=== PATIENT | male | born 1990 | race Caucasian/White ===

== ENCOUNTER 2020-06-14 19:53 | Emergency (ER) | payer BC, SELFPAY ==
--- NOTE | ~2020-06-14 | XR_ITS ---
EXAMINATION: XR ribs LT 2V w CXR 2V INDICATION: Left chest pain TECHNIQUE: PA and lateral views of the chest and 3 views of the left ribs were obtained. COMPARISON: None. FINDINGS: The lungs are free of acute opacities. There is no pleural effusion or pneumothorax. The ca rdiomediastinal silhouette is normal. The visualized osseous structures are unremarkable. No displace d rib fracture is identified. IMPRESSION: 1. No acute cardiopulmonary abnormality or evidence of displaced rib fracture. Reviewed, dictated and finalized at location A. [employer]
[2020-06-14 19:58] VITALS: BP 123/85; PULSE 104; RESP 15; TEMP 36.4; O2SAT 100
--- NOTE | 2020-06-14 20:03 | PC.NURSE ---
patient brought back to ED room 20 with c/o left rib pain after fall last Tuesday. see initial notes. no change in patient's condition. assessments documented. alert. oriented. waiting for further orders from provider.
--- NOTE | 2020-06-14 20:38 | PC.NURSE ---
xray resulted. provider in room now.
--- NOTE | 2020-06-14 20:41 | ED.GENADULT ---
HPI - General Adult General Chief complaint: Unspecified Stated complaint: i think i cracked some ribs Time Seen by Provider: 06/14/20 20:01 Source: patient Mode of arrival: ambulatory Limitations: no limitations History of Present Illness HPI narrative: This is a 30-year-old male that presents the emergency department for left-sided chest pain over the last week after an injury. Reports he had tripped and fell onto some 2 by 4s. Reports the pain is worse with palpation and movement. Relieved with rest. Denies fever, cough, or shortness of breath. Review of Systems Review of Systems: Narrative: CONSTITUTIONAL: Denies fever CARDIOVASCULAR: Denies chest/rib pain RESPIRATORY: Denies cough or dyspnea. All systems reviewed & are unremarkable except as noted in HPI and below PMFSH Past Medical History Medical History (Updated 06/14/20 @ 20:45 by Ca Howard PA-C) No active medical problems Social History Social History (Updated 06/14/20 @ 20:43 by Ca Howard PA-C) Smoking status: Current every day smoker Exam Narrative: Exam Narrative: GENERAL: Well-appearing, well-nourished, and in no acute distress. HEAD: Normocephalic, atraumatic. EYES: EOMI. CHEST: Clear to auscultation. No respiratory distress. No wheezes rales or rhonchi. Tender to palpation of the left, lower chest wall anteriorly HEART: Regular rate and rhythm. No murmur heard. Normal peripheral pulses. EXTREMITIES: Normal range of motion. No edema. SKIN: Warm, dry, no rash. NEURO: No focal deficits. Alert and oriented x3. PSYCH: Normal mood and affect Course Vital Signs Vital signs: Vital Signs Temperature 97.6 F 06/14/20 19:58 Pulse Rate 104 H 06/14/20 19:58 Respiratory Rate 15 06/14/20 19:58 Blood Pressure 123/85 06/14/20 19:58 Pulse Oximetry 100 06/14/20 19:58 Temperature 97.6 F 06/14/20 19:58 Pulse Rate 104 H 06/14/20 19:58 Respiratory Rate 15 06/14/20 19:58 Blood Pressure 123/85 06/14/20 19:58 Pulse Oximetry 100 06/14/20 19:58 Medical Decision Making [facility] Narrative Medical decision making narrative: Patient presents emergency department for left-sided rib pain after an injury 1 week ago. Rib/chest x-ray is without acute findings. Patient was instructed on care of rib contusion. He is to follow-up with primary care doctor. He was given warnings to return to the ER Vital Signs Vital Signs: Vital Signs Temperature 97.6 F 06/14/20 19:58 Pulse Rate 104 H 06/14/20 19:58 Respiratory Rate 15 06/14/20 19:58 Blood Pressure 123/85 06/14/20 19:58 Pulse Oximetry 100 06/14/20 19:58 Temperature 97.6 F 06/14/20 19:58 Pulse Rate 104 H 06/14/20 19:58 Respiratory Rate 15 06/14/20 19:58 Blood Pressure 123/85 06/14/20 19:58 Pulse Oximetry 100 06/14/20 19:58 Imaging Data Radiologist's impression: ITS Impressions Ribs w/Chest X-Ray 06/14/20 20:29 IMPRESSION: 1. No acute cardiopulmonary abnormality or evidence of displaced rib fracture. Critical Care Time Critical Care Time Critical Care Time: No Discharge Plan Discharge Clinical Impression: Contusion of rib on left side Qualifiers: Encounter type: initial encounter Qualified Code(s): S20.212A - Contusion of left front wall of thorax, initial encounter Patient Disposition: Home, Self-Care Condition: Stable Instructions: Rib Contusion (ED) Additional Instructions: Return to the emergency department if you experience fever, cough, shortness of breath, or any other symptoms that are concerning to you Rest. Ice to the area. Tylenol or ibuprofen as needed for pain Follow-up with primary care doctor Follow-up/Referrals: Bobby Baltazar MD [Physician] - 3 Days PHYSICIAN,PEDIATRIC DIETICIAN [Primary Care Provider] -
== END 2020-06-14 20:53 | disposition home or self-care (01) ==
PROVIDERS: Emergency Provider Emergency Medicine
DX: S20.212A Contusion of left front wall of thorax, initial encounter (principal); W19.XXXA Unspecified fall, initial encounter
CPT/HCPCS: 71046; 71100; 99283

== ENCOUNTER 2021-12-04 16:36 | Emergency (ER) | payer BC, SELFPAY ==
[2021-12-04 17:19] VITALS: BP 130/104; PULSE 94; RESP 14; TEMP 36.8; O2SAT 94
--- NOTE | 2021-12-04 17:44 | ED.DENTAL ---
HPI - Dental/Oral General Chief complaint: Dental/Oral <DMITRY Khalil Last Filed: 12/04/21 17:49> Stated complaint: TOOTH PAIN <DMITRY Khalil Last Filed: 12/04/21 17:49> Time Seen by Provider: 12/04/21 17:16 <DMITRY Khalil Last Filed: 12/04/21 17:49> Source: patient <DMITRY Khalil Last Filed: 12/04/21 17:49> Mode of arrival: ambulatory <DMITRY Khalil Last Filed: 12/04/21 17:49> Limitations: no limitations <DMITRY Khalil Last Filed: 12/04/21 17:49> History of Present Illness HPI Narrative: This is a 31-year-old male that presents to the emergency department for dentalgia worsening over the last couple of weeks. Reports he has several bad teeth. Is a left lower molar that is especially giving him trouble. Reports some surrounding swelling. Denies fever or drainage. <Ca Howard PA-C - Last Filed: 12/04/21 17:49> MD Complaint: tooth pain <DMITRY Khalil Last Filed: 12/04/21 17:49> Location: Tooth # (18) <Ca Howard PA-C - Last Filed: 12/04/21 17:49> Related Data Allergies/adverse reactions: Allergies Allergy/AdvReac Type Severity Reaction Status Date / Time No Known Allergies Allergy Verified 12/04/21 17:20 <Ca Howard PA-C - Last Filed: 12/04/21 17:49> Review of Systems Review of Systems: CONSTITUTIONAL: Denies fever ENT: Reports dentalgia <DMITRY Khalil Last Filed: 12/04/21 17:49> All systems reviewed & are unremarkable except as noted in HPI and below <DMITRY Khalil Last Filed: 12/04/21 17:49> [facility] Past Medical History Medical History: Medical History (Updated 12/04/21 @ 17:48 by Ca Howard PA-C) No active medical problems <Ca Howard PA-C - Last Filed: 12/04/21 17:49> Social History Social History: Social History (Updated 06/14/20 @ 20:43 by Ca Howard PA-C) Smoking status: Current every day smoker <Ca Howard PA-C - Last Filed: 12/04/21 17:49> Exam Narrative: GENERAL: Well-appearing, well-nourished, and in no acute distress. HEAD: Normocephalic, atraumatic. EYES: EOMI. ENT: Mucous membranes moist. Oropharynx without tonsillar hypertrophy exudate or other lesions. No trismus. Floor of mouth is soft. Tooth #18 with some surrounding edema, no erythema or fluctuance NECK: Supple. No adenopathy or masses. CHEST: No respiratory distress HEART: Regular rate and rhythm. EXTREMITIES: Normal range of motion. No edema. SKIN: Warm, dry, no rash. NEURO: No focal deficits. Alert and oriented x3. PSYCH: Normal mood and affect <Ca Howard PA-C - Last Filed: 12/04/21 17:49> Course UNDER WATER ASSISTANT/PA Physician Supervision I did not see this patient nor was the care plan discussed with me. I was available for evaluation and consultation, I agree with the documentation <Tyson Singh MD - Last Filed: 12/04/21 21:27> Vital Signs Vital signs: Vital Signs Temperature 36.8 C 12/04/21 17:19 Pulse Rate 94 12/04/21 17:19 Respiratory Rate 14 12/04/21 17:19 Blood Pressure 130/104 H 12/04/21 17:19 Pulse Oximetry 94 12/04/21 17:19 Oxygen Delivery Room Air 12/04/21 17:19 Temperature 36.8 C 12/04/21 17:19 Pulse Rate 94 12/04/21 17:19 Respiratory Rate 14 12/04/21 17:19 Blood Pressure 130/104 H 12/04/21 17:19 Pulse Oximetry 94 12/04/21 17:19 Oxygen Delivery Room Air 12/04/21 17:19 <Ca Howard PA-C - Last Filed: 12/04/21 17:49> Vital Signs Temperature 36.8 C 12/04/21 17:19 Pulse Rate 94 12/04/21 17:19 Respiratory Rate 14 12/04/21 17:19 Blood Pressure 130/104 H 12/04/21 17:19 Pulse Oximetry 94 12/04/21 17:19 Oxygen Delivery Room Air 12/04/21 17:19 Temperature 36.8 C 12/04/21 17:19 Pulse Rate 94 12/04/21 17:19 Respiratory Rate 14 12/04/21 17:19 Blood Pressure 130/104 H 12/04/21 17:19 Pulse Oximetry 94 12/04/21
== END 2021-12-04 18:17 | disposition home or self-care (01) ==
PROVIDERS: Emergency Provider Emergency Medicine
DX: K08.89 Other specified disorders of teeth and supporting structures (principal); F17.200 Nicotine dependence, unspecified, uncomplicated
CPT/HCPCS: 99283

== ENCOUNTER 2024-02-03 19:01 | Emergency (ER) | payer BC, SELFPAY ==
[2024-02-03 19:11] VITALS: BP 105/76; PULSE 82; RESP 18; TEMP 36.1; O2SAT 94
[2024-02-03 22:10] LABS: Basophils Absolute Auto 0.1 K/mm3 (0.0-0.1); Basophils Percent Auto 0.8 % (0.2-1.2); Eosinophils Absolute Auto 0.3 K/mm3 (0-0.3); Hematocrit 46.1 % (42.0-52.0); Hemoglobin 15.7 g/dL (14.0-18.0); Immature Granulocyte Absolute 0.04 K/mm3 (0.00-0.031); Immature Granulocyte Percent A 0.4 % (0-0.5); Lymphocytes Absolute Auto 1.44 K/mm3 (0.9-3.2); Lymphocytes Percent Auto 14.3 % (18.3-44.2); Mean Corpuscular HGB Conc 34.1 g/dl (32-36); Mean Corpuscular Hemoglobin 34.8 pg (26-34); Mean Corpuscular Volume 102.2 fl (80-100); Monocytes Absolute Auto 0.8 K/mm3 (0.1-0.6); Monocytes Percent Auto 7.7 % (2.6-8.5); Neutrophils Absolute Auto 7.4 K/mm3 (1.3-6.7); Neutrophils Percent Auto 73.8 % (45.5-73.1); Platelet Count Result 263 k/mm3 (150-375); Red Blood Count 4.51 M/mm3 (4.6-6.20); Red Cell Distribution Width 13.6 % (11.5-14.5); White Blood Count 10.1 K/mm3 (4.5-10.0)
[2024-02-03 22:27] LABS: Alanine Aminotransferase 22 U/L (6-50); Albumin Level 4.6 g/dL (3.5-5.1); Alkaline Phosphatase 107 U/L (38-126); Anion Gap 14 mmol/L (4-12); Aspartate Amino Transferase 28 U/L (17-59); Bilirubin,Total 2.7 mg/dL (0.2-1.3); Blood Urea Nitrogen 8 mg/dL (9-20); Calcium 9.4 mg/dL (8.4-10.2); Carbon Dioxide 23 mmol/L (22-30); Chloride 96 mmol/L (98-107); Estimated CRCL calculation 173 ml/min; Estimated Glomerular Filt Rate > 60; Glucose 110 mg/dL (65-110); Lipase 172 U/L (23-300); Potassium 3.9 mmol/L (3.4-5.0); Sodium 133 mmol/L (137-145)
[2024-02-03 22:52] LABS: Add Urine Microscopic? YES; Appearance Urine Clear (Clear); Bacteria Urine None Seen /hpf; Bilirubin Urine 2+ (Negative); Blood Urine Negative (Negative); Color Urine Orange (Yellow); Glucose Urine UA Negative (Negative); Ketones Urine 4+ mg/dL (Negative); Leukocyte Esterase Ur Trace LEU/UL (Negative); Mucus Urine Present /lpf; Need Manual Microscopic Reviewed; Nitrate Urine Positive (Negative); Non Pathogenic Casts 0-2; Protein Urine 1+ mg/dL (Negative); RBC Urine 0-2 /hpf (0-2); Specific Grav Ur 1.039 (1.001-1.035); Squamous Epithelial Cell Urine None Seen /hpf (Few); WBC Urine 0-5 /hpf (0-3); pH Urine 6.5 (5.0-9.0)
[2024-02-04 00:47] VITALS: BP 116/84; PULSE 71; RESP 20; TEMP 36.5; O2SAT 97
== END 2024-02-04 00:47 | disposition left against medical advice (07) ==
PROVIDERS: Emergency Provider Emergency Medicine
DX: R10.11 Right upper quadrant pain (principal)
CPT/HCPCS: 36415; 80053; 81001; 83690; 85025; 99199